=== PATIENT | female | born 1945 ===

== ENCOUNTER → 2017-04-02 | Outpatient (REF) | LOC: ZLAB.WCH 18:00 | DX: Z01.89 Encounter for other specified special examinations (principal) ==

== ENCOUNTER → 2017-04-12 | Outpatient (REF) | LOC: ZLAB.WCH 18:35 | DX: Z01.89 Encounter for other specified special examinations (principal) ==

== ENCOUNTER → 2018-03-31 | Outpatient (REF) ==
[2018-03-31 15:09] LABS: THYROID STIMULATING HORMONE 2.78 uIU/mL (0.465-4.680)
== END ==
LOC: ZLAB.WCH 14:16
PROVIDERS: Internal Medicine Cardiovascular Disease
DX: Z01.89 Encounter for other specified special examinations (principal)